=== PATIENT | male | born 1965 | race Caucasian/White ===

== ENCOUNTER 2017-03-10 23:03 | Emergency (ER) | payer MEDICARE, OTHER ==
[~2017-03-10] VITALS: Ht 172.7 cm; Wt 136.4 kg
[2017-03-10] MEDS ORDERED: FLUP10 PO (23:11)
[2017-03-11 01:14] VITALS: BP 116/73
[2017-03-11 01:22] LABS: GLUCOSE,POINT OF CARE 112 MG/DL (70-110)
[2017-03-11 01:22] LABS: GLUCOSE,POINT OF CARE 116 MG/DL (70-110)
== END 2017-03-11 01:22 | disposition home or self-care (01) ==
LOC: EMS 23:05 → EDBD 23:05 → EMS 03-11 01:22
DX: F20.0 Paranoid schizophrenia (principal); R53.1 Weakness; E11.9 Type 2 diabetes mellitus without complications; F17.210 Nicotine dependence, cigarettes, uncomplicated
CPT/HCPCS: 82962; 93005; 99283